=== PATIENT | male | born 1960 | race Two or more races ===

== ENCOUNTER 2021-03-07 11:24 | Emergency (ER) | payer OTHER ==
[~2021-03-07] VITALS: Ht 167.6 cm; Wt 68.0 kg
[~2021-03-07 11:24] MED LIST: CIPRO500 MG PO
[2021-03-07] MEDS ORDERED: AMOXICILLIN500 M1 PO (11:51)
== END 2021-03-07 16:11 | disposition home or self-care (01) ==
LOC: ER 11:24
DX: K21.9 Gastro-esophageal reflux disease without esophagitis (principal)